=== PATIENT | male | born 1995 | race American Indian/Alaskan Native ===

== ENCOUNTER 2017-10-18 22:43 | Emergency (ER) | payer SELFPAY ==
[2017-10-18 23:26] VITALS: BP 133/69
== END 2017-10-19 05:39 | disposition left against medical advice (07) ==
LOC: ED 22:43
DX: Z53.21 Procedure and treatment not carried out due to patient leaving prior to being seen by health care provider (principal)

== ENCOUNTER 2021-06-19 15:34 | Emergency (ER) | payer SELFPAY ==
[2021-06-19 15:47] VITALS: BP 117/84
--- NOTE | 2021-06-19 16:39 | Emergency Department Report ---
Upper Extremity - [facility] Chief Complaint: Extremity Injury, Upper Stated Complaint: RT SHOULDER PAIN Time Seen by Provider: 06/19/21 15:49 Upper Extremity: Right Shoulder Occurred When: 2 Days Symptoms: No Pain with Movement, No Deformity, No Limited Range of Movement, No Numbness, No Weakness, No Swelling, No Bruising/Ecchymosis, No Laceration or Abrasion Other History: The patient was evaluated in the emergency department for symptoms described in the history of present illness. He/she was evaluated in the context of the global COVID-19 pandemic, which necessitated consideration that the patient might be at risk for infection with the virus that causes COVID-19. Institutional protocols and algorithms that pertain to the evaluation of patients at risk for COVID-19 are in a state of rapid change based on information released by regulatory bodies including the CDC and federal and state organizations. These policies and algorithms were followed during the pat ient's care in the emergency department. Please note that these policies, procedures and recommendations changed on a rapid basis. 26-year-old - [place] male that is morbid obese presents to the emergency room for nontraumatic right shoulder pain. Patient states that he pulls and pushes objects at work. He denies any injury that he can recall. Patient is taking nothing for his discomfort. Denies any past medical history no recent falls ED Review of Systems ROS: Stated complaint: RT SHOULDER PAIN Other details as noted in HPI ED Past Medical Hx - Past Medical History Previous Medical History?: No - Surgical History Past Surgical History?: No - Social History Smoking Status: Never Smoker Substance Use Type: None - Medications Home Medications: Home Medications Medication Instructions Recorded Confirmed Last Taken Type Naproxen [Naprosyn TAB] 500 mg PO BID #30 tablet 09/26/14 Unknown Rx Diclofenac Sodium 50 mg PO BID PRN #20 tablet. 06/19/21 Unknown Rx Upper Extremity Exam - Exam General: Vital signs noted. No distress. Alert and acting appropriately. ED Course Vital Signs 06/19/21 15:46 Temperature 98.7 F Pulse Rate 82 Respiratory 18 Rate Blood Pressure 117/84 O2 Sat by Pulse 94 Oximetry ED Medical Decision Making - Medical Decision Making 26-year-old -[place] male that is morbid obese presents to the emergency room for nontraumatic right shoulder pain. Patient states that he pulls and pushes objects at work. He denies any injury that he can recall. Patient is taking nothing for his discomfort. Denies any past medical history no recent falls Patient has a normal examination. Discussed with patient take Tylenol ibuprofen follow-up with primary care provider. Critical care attestation.: If time is entered above; I have spent that time in minutes in the direct care of this critically ill patient, excluding procedure time. ED Disposition Clinical Impression: Right shoulder pain Disposition: HOME / SELF CARE / HOMELESS Is pt being admited?: No Does the pt Need Aspirin: No Condition: Stable Instructions: Shoulder Pain, [id number] Additional Instructions: Please take pain medication as needed for pain. Increase your water and fluid intake while taking medication. If your symptoms persist I recommend following up with orthopedic provider. You can place ice pack on your shoulder will help with the pain. Prescriptions: Diclofenac Sodium 50 mg PO BID PRN #20 tablet.dr GUADALUPE Reason: Pain , Severe (7-10) Referrals: JOSHUA PARISH MD [Staff Physician] - 3-5 Days Forms: Work/School Release Form(ED)
== END 2021-06-19 17:00 | disposition home or self-care (01) ==
LOC: ED 15:34
DX: M25.511 Pain in right shoulder (principal); Z79.899 Other long term (current) drug therapy; Z88.8 Allergy status to other drugs, medicaments and biological substances
CPT/HCPCS: 99282